=== PATIENT | male | born 1950 | race Caucasian/White ===

== ENCOUNTER 2018-10-05 11:36 | Inpatient (IN) | payer MEDICARE, BC ==
[~2018-10-05] VITALS: Ht 182.9 cm; Wt 80.5 kg
--- NOTE | 2018-10-05 12:11 | NUR ---
Note luba in EDM - 10/05/18 at 1213 by [facility] FOR DC PROVIDED. PT DENIES DIZZINESS AT THIS TIME. NO IV TO DC. REVIEWED DC INSTRUCTIONS WITH PT, UNDERSTANDING VERBALIZED, PT LEFT AMB, GAIT STEADY.
[2018-10-05] MEDS ORDERED: HYDROmorphone 1 MG/ML, 1ML AMP IVPush PRN (12:30)
[2018-10-05 12:48] LABS: BASOPHILS # (AUTO) 0.01 x10^3/uL (0-0.1); BASOPHILS % (AUTO) 0 % (0-1); EOSINOPHILS % (AUTO) 0 % (1-7); LYMPHOCYTES # (AUTO) 0.55 x10^3/uL (1-3.4); LYMPHOCYTES % (AUTO) 10 % (22-44); MD NO; MEAN CORPUSCULAR HEMOGLOBIN 29.3 pg (27.5-34.5); MEAN CORPUSCULAR HGB CONC 33.4 g/dL (33.2-36.2); MEAN CORPUSCULAR VOLUME 87.8 fL (81-97); MEAN PLATELET VOLUME 6.8 fL (7.4-10.4); MONOCYTES # (AUTO) 0.74 x10^3/uL (0.2-0.8); MONOCYTES % (AUTO) 13 % (2-9); NEUTROPHILS % (AUTO) 77 % (42-75); PLATELET COUNT 455 x10^3/uL (130-400); RED CELL DISTRIBUTION WIDTH 15.5 % (9.4-14.8)
[2018-10-05 12:52] LABS: INTERNATIONAL NORMALIZED RATIO 1.02 (0.93-1.1); PROTHROMBIN TIME 10.7 Seconds (9.6-11.5)
[2018-10-05 12:54] LABS: ALBUMIN 2.5 g/dL (3.4-5.0); ANION GAP 7 mmol/L (5-15); CALCIUM 8.4 mg/dL (8.5-10.1); CHLORIDE 101 mmol/L (98-107)
[2018-10-05 12:57] LABS: ALANINE AMINOTRANSFERASE 13 U/L (12-78); ALKALINE PHOSPHATASE 88 U/L (45-117); BILIRUBIN,TOTAL 0.6 mg/dL (0.2-1.0); CREATININE 1.33 mg/dL (0.7-1.3); TOTAL PROTEIN 6.6 g/dL (6.4-8.2)
[2018-10-05] MEDS ORDERED: HYDROmorphone 1 MG/ML, 1ML AMP ONE (13:06)
--- NOTE | 2018-10-05 13:15 | NUR ---
MT calling [facility] for consult/records & potential transfer
[2018-10-05] MEDS ORDERED: SODIUM CHLORIDE 0.9% 1,000ML IVBOLUS ONE (13:30)
--- NOTE | 2018-10-05 14:24 | NUR ---
pt to be admitted to [facility], awaiting bed. WCTM.
[2018-10-05] MEDS: CEFTAROLINE 600 MG in SODIUM CHLORIDE 0.9% 100 ML IV SCH (14:59)
[2018-10-05 15:37] VITALS: BP 147/84
[2018-10-05] MEDS: SODIUM CHLORIDE 0.9% 1,000 ML IV SCH (15:48)
[2018-10-05] MEDS ORDERED: ACETAMINOPHEN 325 MG TABLET PO PRN (16:00)
[2018-10-05 16:38] LABS: HCT (SEDRATE) 38.6 % (39.2-51.8)
[2018-10-05] MEDS: ENOXAPARIN 40 MG/0.4 ML SQ SCH ×2 (17:12→17:13)
[2018-10-05] MEDS: morphine SULFATE 10 MG/ML, 1ML IVPush PRN ×3 (17:12→23:34)
[2018-10-05 19:36] VITALS: BP 101/64
[2018-10-05] MEDS ORDERED: OMEPRAZOLE 20 MG CAPSULE.DR PO ONE (20:00)
[2018-10-06] MEDS: CEFTAROLINE 600 MG in SODIUM CHLORIDE 0.9% 100 ML IV SCH ×2 (02:55→15:12)
[2018-10-06] MEDS: SODIUM CHLORIDE 0.9% 1,000 ML IV SCH ×2 (02:56→17:06)
[2018-10-06 02:58] VITALS: BP 136/80
[2018-10-06 04:31] LABS: BASOPHILS # (AUTO) 0.01 x10^3/uL (0-0.1); BASOPHILS % (AUTO) 0 % (0-1); EOSINOPHILS # (AUTO) 0.15 x10^3/uL (0-0.4); EOSINOPHILS % (AUTO) 3 % (1-7); LYMPHOCYTES # (AUTO) 0.58 x10^3/uL (1-3.4); LYMPHOCYTES % (AUTO) 13 % (22-44); MD NO; MEAN CORPUSCULAR HEMOGLOBIN 29.5 pg (27.5-34.5); MEAN CORPUSCULAR HGB CONC 33.9 g/dL (33.2-36.2); MEAN CORPUSCULAR VOLUME 87.1 fL (81-97); MEAN PLATELET VOLUME 6.5 fL (7.4-10.4); MONOCYTES # (AUTO) 0.69 x10^3/uL (0.2-0.8); MONOCYTES % (AUTO) 15 % (2-9); NEUTROPHILS # (AUTO) 3.03 x10^3/uL (1.8-6.8); NEUTROPHILS % (AUTO) 68 % (42-75); PLATELET COUNT 390 x10^3/uL (130-400); RED BLOOD COUNT 3.77 x10^6/uL (4.38-5.82); RED CELL DISTRIBUTION WIDTH 15.9 % (9.4-14.8)
[2018-10-06 04:36] LABS: CHLORIDE 103 mmol/L (98-107)
[2018-10-06 04:37] LABS: ANION GAP 3 mmol/L (5-15); CALCIUM 7.8 mg/dL (8.5-10.1)
[2018-10-06 04:39] LABS: ALANINE AMINOTRANSFERASE 11 U/L (12-78); ALKALINE PHOSPHATASE 70 U/L (45-117); BILIRUBIN,TOTAL 0.4 mg/dL (0.2-1.0); CREATININE 1.02 mg/dL (0.7-1.3); TOTAL PROTEIN 5.6 g/dL (6.4-8.2)
[2018-10-06 07:05] VITALS: BP 121/71
[2018-10-06] MEDS: OMEPRAZOLE 20 MG CAPSULE.DR PO SCH (07:24)
[2018-10-06] MEDS: OXYcodone IR 5MG TABLET PO PRN ×2 (07:24→11:34)
[2018-10-06] MEDS ORDERED: HYDROmorphone 2 MG/ML, 1ML IVPush ONE (14:30)
[2018-10-06 14:35] VITALS: BP 113/76
[2018-10-06] MEDS: methylPREDNISolone SOD SUCC 40 MG/ML IVPush SCH ×2 (16:30→21:54)
[2018-10-06] MEDS ORDERED: HYDROmorphone PCA 30 MG/30 ML IV PRN (16:30)
[2018-10-06] MEDS: ENOXAPARIN 40 MG/0.4 ML SQ SCH (16:49)
[2018-10-06] MEDS: SILVER SULF. CRM 1%, 400GM TP SCH (17:06)
[2018-10-06 20:35] VITALS: BP 126/79
[2018-10-07 01:57] VITALS: BP 113/72
[2018-10-07] MEDS: CEFTAROLINE 600 MG in SODIUM CHLORIDE 0.9% 100 ML IV SCH ×2 (03:36→15:39)
[2018-10-07] MEDS: methylPREDNISolone SOD SUCC 40 MG/ML IVPush SCH ×4 (03:36→22:40)
[2018-10-07] MEDS: OMEPRAZOLE 20 MG CAPSULE.DR PO SCH (05:31)
[2018-10-07 06:59] LABS: MEAN CORPUSCULAR HEMOGLOBIN 29.5 pg (27.5-34.5); MEAN CORPUSCULAR HGB CONC 33.9 g/dL (33.2-36.2); MEAN CORPUSCULAR VOLUME 87.2 fL (81-97); MEAN PLATELET VOLUME 6.4 fL (7.4-10.4); PLATELET COUNT 437 x10^3/uL (130-400); RED BLOOD COUNT 3.85 x10^6/uL (4.38-5.82); RED CELL DISTRIBUTION WIDTH 15.3 % (9.4-14.8)
[2018-10-07 07:02] LABS: ANION GAP 3 mmol/L (5-15); CALCIUM 7.8 mg/dL (8.5-10.1); CHLORIDE 105 mmol/L (98-107); CREATININE 0.94 mg/dL (0.7-1.3)
[2018-10-07 07:10] VITALS: BP 124/67
[2018-10-07 08:03] LABS: MD YES
[2018-10-07 08:16] LABS: BAND#(MANUAL) 0.41 x10^3/uL; BANDS%(MANUAL) 15 % (0-7); LYMPH#(MANUAL) 0.24 x10^3/uL (1-3.4); LYMPHS% (MANUAL) 9 % (22-44); METAMYELOCYTES# (MANUAL) 0.03 x10^3/uL (0-0); METAMYELOCYTES% (MANUAL) 1 % (0-1); MONOS#(MANUAL) 0.19 x10^3/uL (0.3-2.7); MONOS% (MANUAL) 7 % (2-9); REACTIVE LYMPHS # (MANUAL) 0.03 x10^3/uL (0-0); REACTIVE LYMPHS % (MANUAL) 1 % (0-0); SEG#(MANUAL) 1.81 x10^3/uL (1.8-6.8); SEGS% (MANUAL) 67 % (42-75)
[2018-10-07 08:18] LABS: <PLATELET ESTIMATE> INCREASED; <PLT MORPHOLOGY> NORMAL PLT MORPH; ANISOCYTOSIS 1+; POLYCHROMASIA 1+
[2018-10-07] MEDS: MULTIVITAMINS/MINERALS TABLET PO SCH (10:01)
[2018-10-07] MEDS: SILVER SULF. CRM 1%, 400GM TP SCH ×2 (10:01→20:13)
[2018-10-07] MEDS: SODIUM CHLORIDE 0.9% 1,000 ML IV SCH (10:01)
[2018-10-07 15:05] VITALS: BP 168/105
[2018-10-07] MEDS: ENOXAPARIN 40 MG/0.4 ML SQ SCH (15:39)
[2018-10-07] MEDS ORDERED: SODIUM CHLORIDE 0.9% 1,000 ML IV SCH (15:46)
[2018-10-07 18:07] VITALS: BP 158/103
[2018-10-07 19:34] VITALS: BP 150/78
[2018-10-08 00:52] VITALS: BP 129/75
[2018-10-08] MEDS: methylPREDNISolone SOD SUCC 40 MG/ML IVPush SCH ×4 (04:23→23:00)
[2018-10-08] MEDS: CEFTAROLINE 600 MG in SODIUM CHLORIDE 0.9% 100 ML IV SCH ×2 (04:23→15:46)
[2018-10-08] MEDS: OXYcodone IR 5MG TABLET PO PRN (04:27)
[2018-10-08 05:23] LABS: MEAN CORPUSCULAR HEMOGLOBIN 29.5 pg (27.5-34.5); MEAN CORPUSCULAR HGB CONC 33.5 g/dL (33.2-36.2); MEAN CORPUSCULAR VOLUME 87.9 fL (81-97); MEAN PLATELET VOLUME 6.1 fL (7.4-10.4); PLATELET COUNT 382 x10^3/uL (130-400); RED BLOOD COUNT 3.74 x10^6/uL (4.38-5.82); RED CELL DISTRIBUTION WIDTH 15.2 % (9.4-14.8)
[2018-10-08 05:30] LABS: ANION GAP 5 mmol/L (5-15); CHLORIDE 108 mmol/L (98-107); CREATININE 0.85 mg/dL (0.7-1.3)
[2018-10-08 05:52] LABS: MD YES
[2018-10-08 06:02] LABS: ANISOCYTOSIS 1+; BAND#(MANUAL) 0.31 x10^3/uL; BANDS%(MANUAL) 11 % (0-7); LYMPH#(MANUAL) 0.48 x10^3/uL (1-3.4); LYMPHS% (MANUAL) 17 % (22-44); MONOS#(MANUAL) 0.17 x10^3/uL (0.3-2.7); MONOS% (MANUAL) 6 % (2-9); NRBC % (MANUAL) 1 % (0-1); POLYCHROMASIA 1+; SEG#(MANUAL) 1.85 x10^3/uL (1.8-6.8); SEGS% (MANUAL) 66 % (42-75)
[2018-10-08 06:03] LABS: <PLATELET ESTIMATE> ADEQUATE; <PLT MORPHOLOGY> NORMAL PLT MORPH
[2018-10-08] MEDS: OMEPRAZOLE 20 MG CAPSULE.DR PO SCH (06:20)
[2018-10-08 07:35] VITALS: BP 133/72
[2018-10-08] MEDS: MULTIVITAMINS/MINERALS TABLET PO SCH (08:52)
[2018-10-08] MEDS: DOCUSATE 100 MG CAPSULE PO SCH ×2 (11:00→20:30)
[2018-10-08] MEDS ORDERED: ALBUTEROL SULFATE 2.5 MG/3 ML NPPB PRN (11:30)
[2018-10-08] MEDS: SILVER SULF. CRM 1%, 400GM TP SCH ×2 (12:12→20:29)
[2018-10-08 12:55] VITALS: BP 134/80
[2018-10-08] MEDS: ENOXAPARIN 40 MG/0.4 ML SQ SCH (17:00)
[2018-10-08 19:51] VITALS: BP 135/81
[2018-10-08] MEDS: BUDESONIDE 0.5 MG/2 ML INHA INH SCH (21:10)
[2018-10-09 01:15] VITALS: BP 116/82
[2018-10-09] MEDS: CEFTAROLINE 600 MG in SODIUM CHLORIDE 0.9% 100 ML IV SCH (04:18)
[2018-10-09] MEDS: methylPREDNISolone SOD SUCC 40 MG/ML IVPush SCH (04:18)
[2018-10-09] MEDS: OMEPRAZOLE 20 MG CAPSULE.DR PO SCH (05:52)
[2018-10-09 07:21] VITALS: BP 115/68
[2018-10-09] MEDS: DOCUSATE 100 MG CAPSULE PO SCH ×2 (09:49→21:00)
[2018-10-09] MEDS: BUDESONIDE 0.5 MG/2 ML INHA INH SCH ×2 (10:30→21:30)
[2018-10-09] MEDS ORDERED: MORPHINE SULFATE 4 MG/ML, 1ML IVPush PRN (11:00)
[2018-10-09] MEDS ORDERED: OXYcodone/APAP 7.5/325MG TABLET PO PRN (11:00)
[2018-10-09] MEDS: MULTIVITAMINS/MINERALS TABLET PO SCH (11:04)
[2018-10-09] MEDS: SILVER SULF. CRM 1%, 400GM TP SCH ×3 (11:05→22:58)
[2018-10-09 12:25] VITALS: BP 148/87
[2018-10-09] MEDS: ENOXAPARIN 40 MG/0.4 ML SQ SCH (17:28)
[2018-10-09 20:28] VITALS: BP 115/67
[2018-10-10 01:10] VITALS: BP 121/73
[2018-10-10] MEDS: OMEPRAZOLE 20 MG CAPSULE.DR PO SCH (05:49)
[2018-10-10 07:09] VITALS: BP 134/81
[2018-10-10] MEDS: MULTIVITAMINS/MINERALS TABLET PO SCH (07:38)
[2018-10-10] MEDS: DOCUSATE 100 MG CAPSULE PO SCH (07:39)
[2018-10-10] MEDS: BUDESONIDE 0.5 MG/2 ML INHA INH SCH (08:25)
[2018-10-10] MEDS: SILVER SULF. CRM 1%, 400GM TP SCH (11:56)
[2018-10-10] MEDS ORDERED: OMEP-110 PO (13:00)
[2018-10-10] MEDS ORDERED: MULT-484 PO (13:00)
[2018-10-10] MEDS ORDERED: MORP30TA3 PO (13:00)
[2018-10-10] MEDS ORDERED: OXYC1TAB8 PO (13:00)
[2018-10-10] MEDS ORDERED: BUDE0.5A INH (13:00)
[2018-10-10] MEDS ORDERED: SILV25CR6 TP (13:00)
[2018-10-10] MEDS ORDERED: DOCU-131 PO (13:00)
[2018-10-10 14:33] VITALS: BP 123/75
== END 2018-10-10 17:00 | disposition home health service (06) | DRG 602 ==
LOC: ED 12:42 → EDIP 12:43 → ED 12:54 → 3NE 13:44 → EDIP 13:49 → 3NW 15:20
PROVIDERS: ADMIT Internal Medicine; ATTEND Internal Medicine
DX: L08.89 Other specified local infections of the skin and subcutaneous tissue (principal); N17.0 Acute kidney failure with tubular necrosis; D61.811 Other drug-induced pancytopenia; C86.6 Primary cutaneous CD30-positive T-cell proliferations; E44.1 Mild protein-calorie malnutrition; E87.1 Hypo-osmolality and hyponatremia; E87.0 Hyperosmolality and hypernatremia; E86.0 Dehydration; R73.9 Hyperglycemia, unspecified; L25.8 Unspecified contact dermatitis due to other agents; D47.3 Essential (hemorrhagic) thrombocythemia; Z68.24 Body mass index [BMI] 24.0-24.9, adult; D63.8 Anemia in other chronic diseases classified elsewhere; E78.5 Hyperlipidemia, unspecified; I10 Essential (primary) hypertension; J44.9 Chronic obstructive pulmonary disease, unspecified; K21.9 Gastro-esophageal reflux disease without esophagitis; L98.9 Disorder of the skin and subcutaneous tissue, unspecified; T45.1X5A Adverse effect of antineoplastic and immunosuppressive drugs, initial encounter; Z87.891 Personal history of nicotine dependence; Z82.5 Family history of asthma and other chronic lower respiratory diseases
CPT/HCPCS: 36415; 80048; 80053; 83735; 84100; 85025; 85610; 85651; 85730; 87070; 87205; 94640; 96374; 99291; G0378; J0712; J1170; J1650; J7626; J2270; J2920; J7030